=== PATIENT | male | born 1935 | race Caucasian/White ===

== ENCOUNTER 2017-09-24 13:23 | Day surgery (SDC) | payer MEDICARE, BC ==
[~2017-09-24 13:23] MED LIST: ASPI325 PO; ASPI81EC PO; B-122500 MCG PO; BETA.1TL TOP; CALCAVITDA PO; CEPH500 PO; CHOL10002; CLOBETTC TOP; CLOP75 PO; EZET10-40 PO; FAMO20 PO; FISH OIL 1,2001 EACH PO; FISH1000; GABA300 PO; GLIM2 PO; GLIP5 PO; GLUCHON PO; LISI20 PO; LOSA25 PO; METF500 PO; METO25ER PO; METO50ER PO; ONDA4ODT MM; OXYACE5T PO; OXYC5 PO; Prednisone20 MG PO; RXONDA4ODT MM; SIMV40 PO; SITA50T2 PO; VITAMIN B-125000 MCG PO
[2017-10-15] MEDS ORDERED: Carvedilol12.5 MG PO (14:02)
[2017-10-15] MEDS ORDERED: Aldactone25 MG PO (14:03)
== END 2017-09-24 15:06 | disposition home or self-care (01) ==
LOC: WOUND 13:23
DX: Z48.00 Encounter for change or removal of nonsurgical wound dressing (principal); I87.2 Venous insufficiency (chronic) (peripheral); L97.812 Non-pressure chronic ulcer of other part of right lower leg with fat layer exposed; L03.115 Cellulitis of right lower limb; I70.201 Unspecified atherosclerosis of native arteries of extremities, right leg; L02.511 Cutaneous abscess of right hand
CPT/HCPCS: G0463

== ENCOUNTER 2017-10-01 14:49 | Day surgery (SDC) | payer MEDICARE, BC ==
[2017-10-15] MEDS ORDERED: Carvedilol12.5 MG PO (14:02)
[2017-10-15] MEDS ORDERED: Aldactone25 MG PO (14:03)
== END 2017-10-01 16:56 | disposition home or self-care (01) ==
LOC: WOUND 14:49
PROC: 0J9J3ZZ Drainage of Right Hand Subcutaneous Tissue and Fascia, Percutaneous Approach (ICD-10-PCS; principal; 2017-10-01)
DX: Z48.00 Encounter for change or removal of nonsurgical wound dressing (principal); I87.2 Venous insufficiency (chronic) (peripheral); L97.812 Non-pressure chronic ulcer of other part of right lower leg with fat layer exposed; L03.115 Cellulitis of right lower limb; I70.201 Unspecified atherosclerosis of native arteries of extremities, right leg; L02.511 Cutaneous abscess of right hand
CPT/HCPCS: G0463

== ENCOUNTER 2017-10-08 00:45 | Day surgery (SDC) | payer MEDICARE, BC ==
[2017-10-15] MEDS ORDERED: Carvedilol12.5 MG PO (14:02)
[2017-10-15] MEDS ORDERED: Aldactone25 MG PO (14:03)
== END 2017-10-08 22:51 | disposition home or self-care (01) ==
LOC: WOUND 00:45
PROC: 0Y9K3ZZ Drainage of Right Ankle Region, Percutaneous Approach (ICD-10-PCS; principal; 2017-10-08)
DX: Z48.00 Encounter for change or removal of nonsurgical wound dressing (principal); I87.2 Venous insufficiency (chronic) (peripheral); L97.812 Non-pressure chronic ulcer of other part of right lower leg with fat layer exposed; L03.115 Cellulitis of right lower limb; I70.201 Unspecified atherosclerosis of native arteries of extremities, right leg; L02.511 Cutaneous abscess of right hand
CPT/HCPCS: G0463

== ENCOUNTER 2017-10-15 15:00 | Day surgery (SDC) | payer MEDICARE, BC ==
[~2017-10-15 15:00] MED LIST changes: +Aldactone25 MG PO; +Carvedilol12.5 MG PO
== END 2017-10-15 17:29 | disposition home or self-care (01) ==
LOC: WOUND 15:00
PROC: 0HBKXZZ Excision of Right Lower Leg Skin, External Approach (ICD-10-PCS; principal; 2017-10-15)
DX: Z48.00 Encounter for change or removal of nonsurgical wound dressing (principal); E11.621 Type 2 diabetes mellitus with foot ulcer; E11.69 Type 2 diabetes mellitus with other specified complication; I87.2 Venous insufficiency (chronic) (peripheral); L97.812 Non-pressure chronic ulcer of other part of right lower leg with fat layer exposed; L03.115 Cellulitis of right lower limb; I70.201 Unspecified atherosclerosis of native arteries of extremities, right leg; L02.511 Cutaneous abscess of right hand
CPT/HCPCS: G0463

== ENCOUNTER 2017-10-16 07:26 | Observation (INO) | payer MEDICARE, BC ==
[~2017-10-16] VITALS: Ht 190.5 cm; Wt 88.0 kg
[2017-10-17 04:31] LABS: Bun/Creatinine Ratio 15.3 (12.0-20.0); Calcium, Blood 8.1 mg/dL (8.5-10.1); Creatinine, Blood 1.31 mg/dL (0.60-1.20); Potassium, Blood 4.4 mmol/L (3.5-5.5)
== END 2017-10-17 10:00 | disposition home or self-care (01) ==
LOC: MHTC 07:26 → PCU 12:19 → MHTC 15:05 → PCU 15:05
PROVIDERS: Internal Medicine Interventional Cardiology
PROC: 047R3Z1 Dilation of Right Posterior Tibial Artery using Drug-Coated Balloon, Percutaneous Approach (ICD-10-PCS; principal; 2017-10-16)
DX: I70.201 Unspecified atherosclerosis of native arteries of extremities, right leg (principal); E11.622 Type 2 diabetes mellitus with other skin ulcer; L97.319 Non-pressure chronic ulcer of right ankle with unspecified severity; I25.10 Atherosclerotic heart disease of native coronary artery without angina pectoris; I65.29 Occlusion and stenosis of unspecified carotid artery; E11.22 Type 2 diabetes mellitus with diabetic chronic kidney disease; I13.0 Hypertensive heart and chronic kidney disease with heart failure and stage 1 through stage 4 chronic kidney disease, or unspecified chronic kidney disease; I50.9 Heart failure, unspecified; N18.9 Chronic kidney disease, unspecified; J44.9 Chronic obstructive pulmonary disease, unspecified; E78.5 Hyperlipidemia, unspecified; F43.21 Adjustment disorder with depressed mood; G47.33 Obstructive sleep apnea (adult) (pediatric); Z89.612 Acquired absence of left leg above knee; Z95.820 Peripheral vascular angioplasty status with implants and grafts; Z95.1 Presence of aortocoronary bypass graft; Z85.46 Personal history of malignant neoplasm of prostate; Z79.899 Other long term (current) drug therapy; Z79.01 Long term (current) use of anticoagulants; Z79.84 Long term (current) use of oral hypoglycemic drugs; Z87.891 Personal history of nicotine dependence
CPT/HCPCS: 36415; 37228; 75630; 75774; 80048; 85347; 96360; 96361; 99152; 99153; C1725; C1769; C1887; C1894; G0378; J1644; J2250; J2720; J3010; J7030; J7040; Q9967

== ENCOUNTER 2017-10-22 10:02 | Day surgery (SDC) | payer MEDICARE, BC | END 2017-10-22 23:00 | disposition home or self-care (01) | LOC: WOUND 10:02 | DX: Z48.00 Encounter for change or removal of nonsurgical wound dressing (principal); I87.2 Venous insufficiency (chronic) (peripheral); L97.812 Non-pressure chronic ulcer of other part of right lower leg with fat layer exposed; L03.115 Cellulitis of right lower limb; I70.201 Unspecified atherosclerosis of native arteries of extremities, right leg; L02.511 Cutaneous abscess of right hand | CPT/HCPCS: G0463 ==

== ENCOUNTER 2017-10-29 01:00 | Day surgery (SDC) | payer MEDICARE, BC | END 2017-10-29 13:09 | disposition home or self-care (01) | LOC: WOUND 01:00 | DX: Z48.00 Encounter for change or removal of nonsurgical wound dressing (principal); I87.2 Venous insufficiency (chronic) (peripheral); L97.812 Non-pressure chronic ulcer of other part of right lower leg with fat layer exposed; L03.115 Cellulitis of right lower limb; I70.201 Unspecified atherosclerosis of native arteries of extremities, right leg; L02.511 Cutaneous abscess of right hand | CPT/HCPCS: G0463 ==

== ENCOUNTER 2017-11-29 13:00 | Day surgery (SDC) | payer MEDICARE, BC | END 2017-12-04 22:56 | disposition home or self-care (01) | LOC: WOUND 13:00 | DX: Z48.00 Encounter for change or removal of nonsurgical wound dressing (principal); I87.2 Venous insufficiency (chronic) (peripheral); I70.201 Unspecified atherosclerosis of native arteries of extremities, right leg; L97.812 Non-pressure chronic ulcer of other part of right lower leg with fat layer exposed; L03.115 Cellulitis of right lower limb; L02.511 Cutaneous abscess of right hand; I67.2 Cerebral atherosclerosis; Z87.891 Personal history of nicotine dependence | CPT/HCPCS: 87070; 87077; 87147; 87186; 87205; G0463 ==

== ENCOUNTER 2017-12-06 14:14 | Inpatient (IN) | payer MEDICARE, BC ==
[~2017-12-06] VITALS: Ht 190.5 cm; Wt 89.1 kg
[~2017-12-06 14:14] MED LIST changes: -ACET325 PO; -AZIT250 PO; -Bactrim Ds Tab1 EACH PO; -Bisac-Evac10 MG PR; -CEFU250T47 PO; -CHOL10002 PO; -Colace100 MG PO; -INSU100I6; -Milk Of Ma400 MG/5 M PO; -SODBIC650 PO
[2017-12-06] MEDS ORDERED: Bactrim Ds Tab1 EACH PO (19:21)
[2017-12-06 19:31] LABS: Troponin I <0.015 ng/mL (0.000-0.040)
[2017-12-06 21:03] LABS: Alanine Aminotransfer (ALT/SGP 15 U/L (12-78); Albumin, Blood 3.4 g/dL (3.4-5.0); Albumin/Globulin Ratio 0.8 (0.8-1.8); Alk Phos 73 U/L (50-136); Anion Gap 13 mmol/L (6-16); Aspartate Aminotrans (AST/SGOT 30 U/L (12-37); Bilirubin, Direct <0.1 mg/dL (0.0-0.3); Bilirubin, Indirect Unable to Calculate mg/dL (0.1-0.7); Bilirubin, Total 0.4 mg/dL (0.1-1.0); Blood Urea Nitrogen 41 mg/dL (8-24); Bun/Creatinine Ratio 14.1 (12.0-20.0); CO2, Blood 16 mmol/L (21-32); Calcium, Blood 8.8 mg/dL (8.5-10.1); Chloride, Blood 107 mmol/L (98-108); Globulin, Blood 4.1 g/dL (2.2-4.0); Glomerular Filtration Rate 22 (60-); Glucose, Blood 96 mg/dL (70-99); Potassium, Blood 5.5 mmol/L (3.5-5.5); Sodium, Blood 136 mmol/L (136-145); Total Protein, Blood 7.5 g/dL (6.4-8.2)
[2017-12-06 23:06] LABS: Source, Urine Clean Catch
[2017-12-06 23:08] LABS: Bilirubin, Urine Neg (Neg); Blood, Urine Neg (Neg); Glucose Qualitative, Urine Neg (Neg); Ketones, Urine Neg (Neg); Leukocyte Esterase, Urine Neg (Neg); Nitrite, Urine Neg (Neg); Protein, Urine Neg (Neg); Specific Gravity, Urine 1.015 (1.003-1.022); Urobilinogen, Urine NORM (Normal)
[2017-12-06 23:09] LABS: Appearance, Urine Clear (Clear); Color, Urine Yellow (P-Yellow)
[2017-12-06] MEDS ORDERED: CHOL10002 PO (23:15)
[2017-12-06 23:38] LABS: Influenza A Negative (NEGATIVE); Influenza B Negative (NEGATIVE)
[2017-12-07 05:12] LABS: BASOPHILS ABSOLUTE AUTO 0.02 K/mm3 (0.00-0.23); BASOPHILS PERCENT AUTO 0 % (0-2); EOSINOPHILS ABSOLUTE AUTO 0.15 K/mm3 (0.00-0.68); EOSINOPHILS PERCENT AUTO 3 % (0-6); Hemoglobin 10.9 g/dL (13.5-17.5); Mean Corpuscular HGB 27.9 pg (26.0-34.0); Mean Corpuscular HGB Conc 32.1 g/dL (31.5-36.5); Mean Corpuscular Volume 87 fL (80-100); Mean Platelet Volume 9.9 fL (9.1-12.4); Platelet Count 172 K/mm3 (150-400); RDW Coefficient Variation 14.1 % (11.7-14.2); RDW Standard Deviation 45.1 fL (35.1-46.3); Red Blood Cell Count 3.91 M/mm3 (4.30-5.90); White Blood Cell Count 4.96 K/mm3 (4.00-11.30)
[2017-12-07 05:14] LABS: IMMATURE GRAN ABSOLUTE AUTO 0.02 K/mm3 (0.00-0.10); IMMATURE GRAN PERCENT AUTO 0 % (0-1); LYMPHOCYTES PERCENT AUTO 18 % (21-46); MONOCYTES PERCENT AUTO 12 % (4-13); NEUTROPHILS ABSOLUTE AUTO 3.27 K/mm3 (1.96-9.15); NEUTROPHILS PERCENT AUTO 66 % (41-73)
[2017-12-07 05:43] LABS: Albumin, Blood 3.1 g/dL (3.4-5.0); Albumin/Globulin Ratio 0.8 (0.8-1.8); Bilirubin, Total 0.3 mg/dL (0.1-1.0); Bun/Creatinine Ratio 15.6 (12.0-20.0); Calcium, Blood 8.8 mg/dL (8.5-10.1); Creatinine, Blood 3.02 mg/dL (0.60-1.20); Globulin, Blood 4.1 g/dL (2.2-4.0); Potassium, Blood 4.6 mmol/L (3.5-5.5); Total Protein, Blood 7.2 g/dL (6.4-8.2)
[2017-12-08 05:35] LABS: Hemoglobin 10.9 g/dL (13.5-17.5); Mean Corpuscular HGB 28.1 pg (26.0-34.0); Mean Corpuscular HGB Conc 32.1 g/dL (31.5-36.5); Mean Corpuscular Volume 88 fL (80-100); Mean Platelet Volume 10.2 fL (9.1-12.4); Platelet Count 151 K/mm3 (150-400); RDW Coefficient Variation 14.2 % (11.7-14.2); RDW Standard Deviation 45.5 fL (35.1-46.3); Red Blood Cell Count 3.88 M/mm3 (4.30-5.90); White Blood Cell Count 6.14 K/mm3 (4.00-11.30)
[2017-12-08 06:05] LABS: Albumin, Blood 2.9 g/dL (3.4-5.0); Anion Gap 13 mmol/L (6-16); Blood Urea Nitrogen 58 mg/dL (8-24); Bun/Creatinine Ratio 17.7 (12.0-20.0); CO2, Blood 17 mmol/L (21-32); CPK Creatine Kinase 356 U/L (39-308); Calcium, Blood 8.4 mg/dL (8.5-10.1); Chloride, Blood 106 mmol/L (98-108); Creatinine, Blood 3.28 mg/dL (0.60-1.20); Glomerular Filtration Rate 19 (60-); Glucose, Blood 103 mg/dL (70-99); Phosphorus, Blood 4.3 mg/dL (2.5-4.9); Potassium, Blood 4.6 mmol/L (3.5-5.5); Sodium, Blood 136 mmol/L (136-145); Uric Acid, Blood 7.8 mg/dL (3.5-7.2)
[2017-12-09 05:12] LABS: BASOPHILS ABSOLUTE AUTO 0.02 K/mm3 (0.00-0.23); BASOPHILS PERCENT AUTO 0 % (0-2); EOSINOPHILS ABSOLUTE AUTO 0.12 K/mm3 (0.00-0.68); EOSINOPHILS PERCENT AUTO 2 % (0-6); Hematocrit 32.6 % (37.0-53.0); Hemoglobin 10.8 g/dL (13.5-17.5); Mean Corpuscular HGB 28.3 pg (26.0-34.0); Mean Corpuscular HGB Conc 33.1 g/dL (31.5-36.5); Mean Platelet Volume 10.4 fL (9.1-12.4); Platelet Count 178 K/mm3 (150-400); RDW Coefficient Variation 13.9 % (11.7-14.2); RDW Standard Deviation 43.7 fL (35.1-46.3); Red Blood Cell Count 3.82 M/mm3 (4.30-5.90); White Blood Cell Count 6.01 K/mm3 (4.00-11.30)
[2017-12-09 05:22] LABS: IMMATURE GRAN ABSOLUTE AUTO 0.02 K/mm3 (0.00-0.10); IMMATURE GRAN PERCENT AUTO 0 % (0-1); LYMPHOCYTES ABSOLUTE AUTO 2.06 K/mm3 (0.84-5.20); LYMPHOCYTES PERCENT AUTO 34 % (21-46); MONOCYTES ABSOLUTE AUTO 0.65 K/mm3 (0.16-1.47); MONOCYTES PERCENT AUTO 11 % (4-13); Mean Corpuscular Volume 85 fL (80-100); NEUTROPHILS ABSOLUTE AUTO 3.14 K/mm3 (1.96-9.15); NEUTROPHILS PERCENT AUTO 52 % (41-73)
[2017-12-09 05:40] LABS: Albumin, Blood 2.8 g/dL (3.4-5.0); Anion Gap 10 mmol/L (6-16); Blood Urea Nitrogen 59 mg/dL (8-24); Bun/Creatinine Ratio 22.6 (12.0-20.0); CO2, Blood 19 mmol/L (21-32); Calcium, Blood 8.5 mg/dL (8.5-10.1); Chloride, Blood 109 mmol/L (98-108); Creatinine, Blood 2.61 mg/dL (0.60-1.20); Glomerular Filtration Rate 25 (60-); Glucose, Blood 118 mg/dL (70-99); Phosphorus, Blood 3.7 mg/dL (2.5-4.9); Potassium, Blood 4.7 mmol/L (3.5-5.5); Sodium, Blood 138 mmol/L (136-145)
[2017-12-10 08:48] LABS: Albumin, Blood 2.9 g/dL (3.4-5.0); Anion Gap 8 mmol/L (6-16); Blood Urea Nitrogen 48 mg/dL (8-24); CO2, Blood 20 mmol/L (21-32); Calcium, Blood 9.1 mg/dL (8.5-10.1); Chloride, Blood 111 mmol/L (98-108); Creatinine, Blood 2.18 mg/dL (0.60-1.20); Glomerular Filtration Rate 31 (60-); Glucose, Blood 145 mg/dL (70-99); Phosphorus, Blood 3.5 mg/dL (2.5-4.9); Potassium, Blood 4.8 mmol/L (3.5-5.5); Sodium, Blood 139 mmol/L (136-145)
[2017-12-10] MEDS ORDERED: ACET325 PO (14:04)
[2017-12-10] MEDS ORDERED: AZIT250 PO (14:05)
[2017-12-10] MEDS ORDERED: CEFU250T47 PO (14:06)
[2017-12-10] MEDS ORDERED: Bisac-Evac10 MG PR (14:06)
[2017-12-10] MEDS ORDERED: Milk Of Ma400 MG/5 M PO (14:07)
[2017-12-10] MEDS ORDERED: Colace100 MG PO (14:07)
[2017-12-10] MEDS ORDERED: SODBIC650 PO (14:08)
[2017-12-10] MEDS ORDERED: INSU100I6 (14:08)
== END 2017-12-10 14:12 | DRG 194 ==
LOC: ER 14:14 → MEDS 20:27
PROVIDERS: Internal Medicine; Physician Assistant
DX: J18.9 Pneumonia, unspecified organism (principal); N17.9 Acute kidney failure, unspecified; E11.22 Type 2 diabetes mellitus with diabetic chronic kidney disease; E11.40 Type 2 diabetes mellitus with diabetic neuropathy, unspecified; N18.4 Chronic kidney disease, stage 4 (severe); I13.0 Hypertensive heart and chronic kidney disease with heart failure and stage 1 through stage 4 chronic kidney disease, or unspecified chronic kidney disease; I50.20 Unspecified systolic (congestive) heart failure; L97.411 Non-pressure chronic ulcer of right heel and midfoot limited to breakdown of skin; E11.621 Type 2 diabetes mellitus with foot ulcer; E87.5 Hyperkalemia; F43.20 Adjustment disorder, unspecified; I73.9 Peripheral vascular disease, unspecified; J44.9 Chronic obstructive pulmonary disease, unspecified; L97.511 Non-pressure chronic ulcer of other part of right foot limited to breakdown of skin; I25.10 Atherosclerotic heart disease of native coronary artery without angina pectoris; Z66 Do not resuscitate; Z85.46 Personal history of malignant neoplasm of prostate; Z79.02 Long term (current) use of antithrombotics/antiplatelets; Z79.4 Long term (current) use of insulin; Z89.612 Acquired absence of left leg above knee
CPT/HCPCS: 36415; 71046; 76770; 78582; 80048; 80053; 80069; 80076; 81003; 82550; 82947; 83605; 83880; 84145; 84300; 84484; 84550; 85025; 85027; 87040; 87070; 87081; 87205; 87804; 93005; 93010; 94667; 94760; 96374; 96375; 97110; 97161; 97166; 97530; 97535; 99285; A9540; A9558; G8978; G8979; G8987; G8988; J0456; J0610; J0690; J0696; J1650; J1815; J1940; J7030; J7050

== ENCOUNTER → 2017-12-06 | Outpatient (CLI) | payer MEDICARE, BC ==
[~2017-12-06] MED LIST changes: +ACET325 PO; +AZIT250 PO; +Bactrim Ds Tab1 EACH PO; +Bisac-Evac10 MG PR; +CEFU250T47 PO; +CHOL10002 PO; +Colace100 MG PO; +INSU100I6; +Milk Of Ma400 MG/5 M PO; +SODBIC650 PO
[2017-12-06 12:28] LABS: BASOPHILS ABSOLUTE AUTO 0.03 K/mm3 (0.00-0.23); BASOPHILS PERCENT AUTO 1 % (0-2); Calcium, Blood 9.1 mg/dL (8.5-10.1); Creatinine, Blood 2.93 mg/dL (0.60-1.20); EOSINOPHILS ABSOLUTE AUTO 0.12 K/mm3 (0.00-0.68); EOSINOPHILS PERCENT AUTO 2 % (0-6); Hematocrit 35.5 % (37.0-53.0); Hemoglobin 11.8 g/dL (13.5-17.5); IMMATURE GRAN ABSOLUTE AUTO 0.04 K/mm3 (0.00-0.10); IMMATURE GRAN PERCENT AUTO 1 % (0-1); LYMPHOCYTES ABSOLUTE AUTO 0.57 K/mm3 (0.84-5.20); LYMPHOCYTES PERCENT AUTO 10 % (21-46); MONOCYTES ABSOLUTE AUTO 0.42 K/mm3 (0.16-1.47); MONOCYTES PERCENT AUTO 7 % (4-13); Mean Corpuscular HGB 28.9 pg (26.0-34.0); Mean Corpuscular HGB Conc 33.2 g/dL (31.5-36.5); Mean Corpuscular Volume 87 fL (80-100); Mean Platelet Volume 10.1 fL (9.1-12.4); NEUTROPHILS PERCENT AUTO 79 % (41-73); Platelet Count 182 K/mm3 (150-400); Potassium, Blood 5.8 mmol/L (3.5-5.5); RDW Coefficient Variation 14.2 % (11.7-14.2); Red Blood Cell Count 4.09 M/mm3 (4.30-5.90); White Blood Cell Count 5.68 K/mm3 (4.00-11.30)
== END | disposition home or self-care (01) ==
LOC: LAB EV 12:11 → LAB SHORT 12:11
PROVIDERS: Physician Assistant Surgical
DX: M62.81 Muscle weakness (generalized) (principal)
CPT/HCPCS: 80048; 83880; 85025

== ENCOUNTER 2017-12-18 12:18 | Day surgery (SDC) | payer MEDICARE, BC ==
[~2017-12-18 12:18] MED LIST changes: +ACET325 PO; +AZIT250 PO; +Bactrim Ds Tab1 EACH PO; +Bisac-Evac10 MG PR; +CEFU250T47 PO; +CHOL10002 PO; +Colace100 MG PO; +INSU100I6; +Milk Of Ma400 MG/5 M PO; +SODBIC650 PO
== END 2017-12-18 14:47 | disposition home or self-care (01) ==
LOC: WOUND 12:18
PROC: 0JBQ0ZZ Excision of Right Foot Subcutaneous Tissue and Fascia, Open Approach (ICD-10-PCS; principal; 2017-12-18)
DX: Z48.00 Encounter for change or removal of nonsurgical wound dressing (principal); I70.201 Unspecified atherosclerosis of native arteries of extremities, right leg; L97.812 Non-pressure chronic ulcer of other part of right lower leg with fat layer exposed; L97.511 Non-pressure chronic ulcer of other part of right foot limited to breakdown of skin; L97.311 Non-pressure chronic ulcer of right ankle limited to breakdown of skin; L03.115 Cellulitis of right lower limb; L02.511 Cutaneous abscess of right hand; E78.5 Hyperlipidemia, unspecified; Z87.891 Personal history of nicotine dependence; Z95.828 Presence of other vascular implants and grafts; Z90.79 Acquired absence of other genital organ(s); Z95.1 Presence of aortocoronary bypass graft; Z86.14 Personal history of Methicillin resistant Staphylococcus aureus infection
CPT/HCPCS: G0463

== ENCOUNTER 2017-12-25 12:21 | Day surgery (SDC) | payer MEDICARE, BC | END 2017-12-25 22:44 | disposition home or self-care (01) | LOC: WOUND 12:21 | DX: Z48.00 Encounter for change or removal of nonsurgical wound dressing (principal); I87.2 Venous insufficiency (chronic) (peripheral); E11.622 Type 2 diabetes mellitus with other skin ulcer; L97.812 Non-pressure chronic ulcer of other part of right lower leg with fat layer exposed; L03.115 Cellulitis of right lower limb; I70.201 Unspecified atherosclerosis of native arteries of extremities, right leg; L02.511 Cutaneous abscess of right hand | CPT/HCPCS: G0463 ==

== ENCOUNTER 2017-12-31 08:42 | Day surgery (SDC) | payer MEDICARE, BC | END 2017-12-31 09:43 | disposition home or self-care (01) | LOC: WOUND 08:42 | PROC: 0HBMXZZ Excision of Right Foot Skin, External Approach (ICD-10-PCS; principal; 2017-12-31) | DX: I87.2 Venous insufficiency (chronic) (peripheral) (principal); L97.511 Non-pressure chronic ulcer of other part of right foot limited to breakdown of skin; L97.812 Non-pressure chronic ulcer of other part of right lower leg with fat layer exposed; L03.115 Cellulitis of right lower limb; I70.201 Unspecified atherosclerosis of native arteries of extremities, right leg; L02.511 Cutaneous abscess of right hand | CPT/HCPCS: G0463 ==

== ENCOUNTER 2018-01-16 12:16 | Day surgery (SDC) | payer MEDICARE, BC | END 2018-01-16 15:46 | disposition home or self-care (01) | LOC: WOUND 12:16 | DX: E11.621 Type 2 diabetes mellitus with foot ulcer (principal); I87.2 Venous insufficiency (chronic) (peripheral); E11.622 Type 2 diabetes mellitus with other skin ulcer; L97.512 Non-pressure chronic ulcer of other part of right foot with fat layer exposed; L97.812 Non-pressure chronic ulcer of other part of right lower leg with fat layer exposed; L03.115 Cellulitis of right lower limb; I70.201 Unspecified atherosclerosis of native arteries of extremities, right leg; L02.511 Cutaneous abscess of right hand ==

== ENCOUNTER 2018-01-23 00:06 | Day surgery (SDC) | payer MEDICARE, BC | END 2018-01-23 23:05 | disposition home or self-care (01) | LOC: WOUND 00:06 | DX: Z48.00 Encounter for change or removal of nonsurgical wound dressing (principal); E11.622 Type 2 diabetes mellitus with other skin ulcer; E11.621 Type 2 diabetes mellitus with foot ulcer; I87.2 Venous insufficiency (chronic) (peripheral); L97.812 Non-pressure chronic ulcer of other part of right lower leg with fat layer exposed; L03.115 Cellulitis of right lower limb; I70.201 Unspecified atherosclerosis of native arteries of extremities, right leg; L02.511 Cutaneous abscess of right hand | CPT/HCPCS: G0463 ==

== ENCOUNTER 2018-01-30 09:15 | Day surgery (SDC) | payer MEDICARE, BC | END 2018-01-30 23:00 | disposition home or self-care (01) | LOC: WOUND 09:15 | PROC: 0HBMXZZ Excision of Right Foot Skin, External Approach (ICD-10-PCS; principal; 2018-01-30) | DX: E11.621 Type 2 diabetes mellitus with foot ulcer (principal); L97.512 Non-pressure chronic ulcer of other part of right foot with fat layer exposed; I87.2 Venous insufficiency (chronic) (peripheral); I70.201 Unspecified atherosclerosis of native arteries of extremities, right leg; E11.622 Type 2 diabetes mellitus with other skin ulcer; L03.115 Cellulitis of right lower limb; L02.511 Cutaneous abscess of right hand | CPT/HCPCS: 87081; G0463 ==

== ENCOUNTER 2018-02-06 09:15 | Day surgery (SDC) | payer MEDICARE, BC | END 2018-02-06 13:59 | disposition home or self-care (01) | LOC: WOUND 09:15 | DX: E11.621 Type 2 diabetes mellitus with foot ulcer (principal); L97.512 Non-pressure chronic ulcer of other part of right foot with fat layer exposed; I87.2 Venous insufficiency (chronic) (peripheral); L97.812 Non-pressure chronic ulcer of other part of right lower leg with fat layer exposed; L03.115 Cellulitis of right lower limb; I70.201 Unspecified atherosclerosis of native arteries of extremities, right leg; L02.511 Cutaneous abscess of right hand | CPT/HCPCS: 87081; G0463 ==

== ENCOUNTER 2018-02-13 09:15 | Day surgery (SDC) | payer MEDICARE, BC | END 2018-02-13 10:21 | disposition home or self-care (01) | LOC: WOUND 09:15 | DX: Z48.00 Encounter for change or removal of nonsurgical wound dressing (principal); I87.2 Venous insufficiency (chronic) (peripheral); L97.812 Non-pressure chronic ulcer of other part of right lower leg with fat layer exposed; L03.115 Cellulitis of right lower limb; I70.201 Unspecified atherosclerosis of native arteries of extremities, right leg; L02.511 Cutaneous abscess of right hand | CPT/HCPCS: G0463 ==

== ENCOUNTER 2018-02-20 09:22 | Day surgery (SDC) | payer MEDICARE, BC | END 2018-02-20 10:13 | disposition home or self-care (01) | LOC: WOUND 09:22 | DX: E11.621 Type 2 diabetes mellitus with foot ulcer (principal); L97.512 Non-pressure chronic ulcer of other part of right foot with fat layer exposed; I87.2 Venous insufficiency (chronic) (peripheral); L97.812 Non-pressure chronic ulcer of other part of right lower leg with fat layer exposed; L03.115 Cellulitis of right lower limb; L02.511 Cutaneous abscess of right hand | CPT/HCPCS: G0463 ==

== ENCOUNTER 2018-03-06 09:15 | Day surgery (SDC) | payer MEDICARE, BC | END 2018-03-06 10:37 | disposition home or self-care (01) | LOC: WOUND 09:15 | DX: Z48.00 Encounter for change or removal of nonsurgical wound dressing (principal); E11.622 Type 2 diabetes mellitus with other skin ulcer; I87.2 Venous insufficiency (chronic) (peripheral); L97.812 Non-pressure chronic ulcer of other part of right lower leg with fat layer exposed; L03.115 Cellulitis of right lower limb; L02.511 Cutaneous abscess of right hand | CPT/HCPCS: G0463 ==

== ENCOUNTER 2018-03-28 11:15 | Day surgery (SDC) | payer MEDICARE, BC | END 2018-03-28 12:28 | disposition home or self-care (01) | LOC: WOUND 11:15 | DX: Z48.00 Encounter for change or removal of nonsurgical wound dressing (principal); I87.2 Venous insufficiency (chronic) (peripheral); L97.812 Non-pressure chronic ulcer of other part of right lower leg with fat layer exposed; L03.115 Cellulitis of right lower limb; I70.201 Unspecified atherosclerosis of native arteries of extremities, right leg; L02.511 Cutaneous abscess of right hand | CPT/HCPCS: G0463 ==

== ENCOUNTER 2018-04-04 13:30 | Day surgery (SDC) | payer MEDICARE, BC | END 2018-04-04 15:15 | disposition home or self-care (01) | LOC: WOUND 13:30 | DX: E11.622 Type 2 diabetes mellitus with other skin ulcer (principal); I70.238 Atherosclerosis of native arteries of right leg with ulceration of other part of lower leg; L97.312 Non-pressure chronic ulcer of right ankle with fat layer exposed; I87.2 Venous insufficiency (chronic) (peripheral); L03.115 Cellulitis of right lower limb; L02.511 Cutaneous abscess of right hand; Z86.14 Personal history of Methicillin resistant Staphylococcus aureus infection | CPT/HCPCS: G0463 ==

== ENCOUNTER 2018-04-09 00:13 | Day surgery (SDC) | payer MEDICARE, BC | END 2018-04-09 12:54 | disposition home or self-care (01) | LOC: WOUND 00:13 | DX: Z48.00 Encounter for change or removal of nonsurgical wound dressing (principal); I87.2 Venous insufficiency (chronic) (peripheral); L97.812 Non-pressure chronic ulcer of other part of right lower leg with fat layer exposed; L03.115 Cellulitis of right lower limb; I70.201 Unspecified atherosclerosis of native arteries of extremities, right leg; L02.511 Cutaneous abscess of right hand | CPT/HCPCS: G0463 ==

== ENCOUNTER 2018-04-28 21:58 | Inpatient (IN) | payer MEDICARE, BC ==
[~2018-04-28] VITALS: Ht 193 cm; Wt 94.1 kg
[2018-04-28] MEDS ORDERED: Sulfamethoxazo1 EAC4 PO (22:18)
[2018-04-28 22:30] LABS: BASOPHILS ABSOLUTE AUTO 0.03 K/mm3 (0.00-0.23); BASOPHILS PERCENT AUTO 0 % (0-2); EOSINOPHILS ABSOLUTE AUTO 0.06 K/mm3 (0.00-0.68); EOSINOPHILS PERCENT AUTO 1 % (0-6); Hematocrit 31.7 % (37.0-53.0); Hemoglobin 10.2 g/dL (13.5-17.5); IMMATURE GRAN ABSOLUTE AUTO 0.03 K/mm3 (0.00-0.10); IMMATURE GRAN PERCENT AUTO 0 % (0-1); LYMPHOCYTES ABSOLUTE AUTO 0.46 K/mm3 (0.84-5.20); LYMPHOCYTES PERCENT AUTO 7 % (21-46); MONOCYTES ABSOLUTE AUTO 0.48 K/mm3 (0.16-1.47); MONOCYTES PERCENT AUTO 7 % (4-13); Mean Corpuscular HGB 29.1 pg (26.0-34.0); Mean Corpuscular HGB Conc 32.2 g/dL (31.5-36.5); Mean Corpuscular Volume 91 fL (80-100); Mean Platelet Volume 9.6 fL (9.1-12.4); NEUTROPHILS ABSOLUTE AUTO 5.82 K/mm3 (1.96-9.15); NEUTROPHILS PERCENT AUTO 85 % (41-73); Platelet Count 153 K/mm3 (150-400); RDW Coefficient Variation 13.8 % (11.7-14.2); RDW Standard Deviation 45.2 fL (35.1-46.3); White Blood Cell Count 6.88 K/mm3 (4.00-11.30)
[2018-04-28 22:48] LABS: Albumin/Globulin Ratio 0.9 (0.8-1.8); Bilirubin, Total 0.4 mg/dL (0.1-1.0); Calcium, Blood 7.9 mg/dL (8.5-10.1); Creatinine, Blood 2.29 mg/dL (0.60-1.20); Globulin, Blood 3.5 g/dL (2.2-4.0); Potassium, Blood 4.3 mmol/L (3.5-5.5); Total Protein, Blood 6.5 g/dL (6.4-8.2)
[2018-04-29 05:13] LABS: Bun/Creatinine Ratio 17.1 (12.0-20.0); Calcium, Blood 8.3 mg/dL (8.5-10.1); Creatinine, Blood 2.22 mg/dL (0.60-1.20); Potassium, Blood 4.6 mmol/L (3.5-5.5)
[2018-04-29 05:51] LABS: Source, Urine Clean Catch
[2018-04-29 05:54] LABS: Bilirubin, Urine Neg (Neg); Blood, Urine Neg (Neg); Glucose Qualitative, Urine 1+ (Neg); Ketones, Urine Neg (Neg); Leukocyte Esterase, Urine Neg (Neg); Nitrite, Urine Neg (Neg); Protein, Urine Neg (Neg); Specific Gravity, Urine 1.015 (1.003-1.022); Urobilinogen, Urine NORM (Normal)
[2018-04-29 06:00] LABS: Appearance, Urine Clear (Clear); Color, Urine Yellow (P-Yellow)
[2018-04-30 05:41] LABS: Hematocrit 30.9 % (37.0-53.0); Hemoglobin 9.9 g/dL (13.5-17.5)
[2018-04-30 05:48] LABS: Albumin, Blood 2.8 g/dL (3.4-5.0); Anion Gap 12 mmol/L (6-16); Blood Urea Nitrogen 34 mg/dL (8-24); Bun/Creatinine Ratio 16.7 (12.0-20.0); CO2, Blood 18 mmol/L (21-32); Calcium, Blood 7.9 mg/dL (8.5-10.1); Chloride, Blood 111 mmol/L (98-108); Creatinine, Blood 2.03 mg/dL (0.60-1.20); Glomerular Filtration Rate 34 (60-); Glucose, Blood 116 mg/dL (70-99); Magnesium, Blood 1.9 mg/dL (1.6-2.4); Potassium, Blood 4.2 mmol/L (3.5-5.5); Sodium, Blood 141 mmol/L (136-145)
[2018-05-01 08:24] LABS: Albumin, Blood 2.6 g/dL (3.4-5.0); Anion Gap 10 mmol/L (6-16); Blood Urea Nitrogen 33 mg/dL (8-24); Bun/Creatinine Ratio 18.1 (12.0-20.0); CO2, Blood 21 mmol/L (21-32); Calcium, Blood 8.3 mg/dL (8.5-10.1); Chloride, Blood 110 mmol/L (98-108); Creatinine, Blood 1.82 mg/dL (0.60-1.20); Glomerular Filtration Rate 38 (60-); Glucose, Blood 156 mg/dL (70-99); Phosphorus, Blood 3.2 mg/dL (2.5-4.9); Potassium, Blood 4.3 mmol/L (3.5-5.5); Sodium, Blood 141 mmol/L (136-145)
[2018-05-01] MEDS ORDERED: AZIT250 PO (12:23)
[2018-05-01] MEDS ORDERED: ALBU90OI INH (12:23)
[2018-05-01] MEDS ORDERED: CEFP200 PO (12:24)
== END 2018-05-01 14:20 | disposition home or self-care (01) | DRG 194 ==
LOC: ER 21:58 → MEDS 21:59 → ENPENDDIS 05-01 11:53 → MEDS 05-01 14:20
PROVIDERS: Emergency Medicine; Internal Medicine; Internal Medicine Nephrology
DX: J18.9 Pneumonia, unspecified organism (principal); N17.9 Acute kidney failure, unspecified; L03.115 Cellulitis of right lower limb; I13.0 Hypertensive heart and chronic kidney disease with heart failure and stage 1 through stage 4 chronic kidney disease, or unspecified chronic kidney disease; I50.32 Chronic diastolic (congestive) heart failure; E87.2 Acidosis; J44.0 Chronic obstructive pulmonary disease with (acute) lower respiratory infection; Z95.5 Presence of coronary angioplasty implant and graft; E78.00 Pure hypercholesterolemia, unspecified; Z87.891 Personal history of nicotine dependence; F41.8 Other specified anxiety disorders; M19.90 Unspecified osteoarthritis, unspecified site; Z85.46 Personal history of malignant neoplasm of prostate; G44.229 Chronic tension-type headache, not intractable; Z95.0 Presence of cardiac pacemaker; I25.10 Atherosclerotic heart disease of native coronary artery without angina pectoris; N18.3 Chronic kidney disease, stage 3 (moderate); E11.22 Type 2 diabetes mellitus with diabetic chronic kidney disease; Z90.79 Acquired absence of other genital organ(s); D63.1 Anemia in chronic kidney disease; Z89.612 Acquired absence of left leg above knee; Z79.02 Long term (current) use of antithrombotics/antiplatelets; Z99.3 Dependence on wheelchair; Z79.84 Long term (current) use of oral hypoglycemic drugs
CPT/HCPCS: 36415; 36416; 71046; 76770; 80048; 80053; 80069; 81003; 82947; 83605; 83735; 85014; 85018; 85025; 87040; 87070; 87205; 93005; 93010; 94760; 96365; 96375; 97162; 97165; 97530; 99285-25; G8978; G8979; G8987; G8988; J0456; J0696; J1644; J7030; J7050

== ENCOUNTER 2018-05-07 00:42 | Day surgery (SDC) | payer MEDICARE, BC ==
[~2018-05-07 00:42] MED LIST changes: +ALBU90OI INH; +CEFP200 PO; +Sulfamethoxazo1 EAC4 PO
[2018-05-07] MEDS ORDERED: GLIM4 PO (14:12)
== END 2018-05-07 14:19 | disposition home or self-care (01) ==
LOC: ATC 00:42
DX: Z48.00 Encounter for change or removal of nonsurgical wound dressing (principal); E11.9 Type 2 diabetes mellitus without complications
CPT/HCPCS: 99213

== ENCOUNTER 2018-05-12 00:21 | Day surgery (SDC) | payer MEDICARE, BC ==
[~2018-05-12 00:21] MED LIST changes: +GLIM4 PO
== END 2018-05-12 10:23 | disposition home or self-care (01) ==
LOC: ATC 00:21
DX: Z48.00 Encounter for change or removal of nonsurgical wound dressing (principal); E11.9 Type 2 diabetes mellitus without complications
CPT/HCPCS: 99212

== ENCOUNTER 2018-05-20 00:17 | Day surgery (SDC) | payer MEDICARE, BC | END 2018-05-20 10:03 | disposition home or self-care (01) | LOC: ATC 00:17 | DX: Z48.00 Encounter for change or removal of nonsurgical wound dressing (principal); E11.9 Type 2 diabetes mellitus without complications; E78.5 Hyperlipidemia, unspecified; G47.33 Obstructive sleep apnea (adult) (pediatric) | CPT/HCPCS: 99212 ==

== ENCOUNTER → 2019-04-10 | Outpatient (CLI) | payer MEDICARE, BC ==
[~2019-04-10] MED LIST changes: +ALBU3IS INH; +AMOCLA875 PO; -CHOL10002 PO; +CODEINE-GUAIFE120 ML PO; +MIRT15 PO; +PANT20 PO; +Pedi-Dri 100,0060 GM TOP; -SIMV40 PO; +Simvastatin40 MG PO; +TRAM50 PO; +TRULICITY0.75 MG/0. SC; +VITAMIN D32000 UNI1 PO; +Vsl#3 Capsule1 EACH PO
== END | disposition home or self-care (01) ==
LOC: LAB EV 16:50 → LAB SHORT 16:50
DX: R30.0 Dysuria (principal)
CPT/HCPCS: 87086

== ENCOUNTER 2019-05-07 15:08 | Inpatient (IN) | payer OTHER, MEDICARE, BC ==
[~2019-05-07] VITALS: Ht 193 cm; Wt 86.9 kg
[~2019-05-07 15:08] MED LIST changes: -ALBU3IS INH; -ALBU90OI INH; -AMOCLA875 PO; -Aldactone25 MG PO; -CODEINE-GUAIFE120 ML PO; -Carvedilol12.5 MG PO; -FISH OIL 1,2001 EACH PO; -GABA300 PO; -GLIM4 PO; -LOSA25 PO; -MIRT15 PO; -PANT20 PO; -Pedi-Dri 100,0060 GM TOP; -Simvastatin40 MG PO; -TRAM50 PO; -TRULICITY0.75 MG/0. SC; -VITAMIN B-125000 MCG PO; -VITAMIN D32000 UNI1 PO; -Vsl#3 Capsule1 EACH PO
[2019-05-07 15:32] LABS: BASOPHILS ABSOLUTE AUTO 0.04 K/mm3 (0.00-0.23); BASOPHILS PERCENT AUTO 1 % (0-2); EOSINOPHILS PERCENT AUTO 2 % (0-6); Hemoglobin 10.9 g/dL (13.5-17.5); IMMATURE GRAN ABSOLUTE AUTO 0.06 K/mm3 (0.00-0.10); IMMATURE GRAN PERCENT AUTO 1 % (0-1); LYMPHOCYTES ABSOLUTE AUTO 0.48 K/mm3 (0.84-5.20); LYMPHOCYTES PERCENT AUTO 6 % (21-46); MONOCYTES ABSOLUTE AUTO 0.75 K/mm3 (0.16-1.47); MONOCYTES PERCENT AUTO 9 % (4-13); Mean Corpuscular HGB 28.2 pg (26.0-34.0); Mean Corpuscular HGB Conc 31.1 g/dL (31.5-36.5); Mean Platelet Volume 10.3 fL (9.1-12.4); NEUTROPHILS ABSOLUTE AUTO 7.18 K/mm3 (1.96-9.15); NEUTROPHILS PERCENT AUTO 82 % (41-73); Platelet Count 197 K/mm3 (150-400); RDW Coefficient Variation 14.8 % (11.7-14.2); RDW Standard Deviation 49.4 fL (35.1-46.3); Red Blood Cell Count 3.87 M/mm3 (4.30-5.90); White Blood Cell Count 8.71 K/mm3 (4.00-11.30)
[2019-05-07 15:35] LABS: Mean Corpuscular Volume 90 fL (80-100)
[2019-05-07 16:12] LABS: Albumin, Blood 2.6 g/dL (3.4-5.0); Albumin/Globulin Ratio 0.6 (0.8-1.8); Bilirubin, Total 0.6 mg/dL (0.1-1.0); Bun/Creatinine Ratio 24.9 (12.0-20.0); Calcium, Blood 7.6 mg/dL (8.5-10.1); Creatinine, Blood 2.85 mg/dL (0.60-1.20); Globulin, Blood 4.3 g/dL (2.2-4.0); Potassium, Blood 5.2 mmol/L (3.5-5.5); Total Protein, Blood 6.9 g/dL (6.4-8.2)
[2019-05-07] MEDS ORDERED: CLOP75 PO (17:59)
[2019-05-07] MEDS ORDERED: GABA300 PO (18:00)
[2019-05-07] MEDS ORDERED: LOSA25 PO (18:01)
[2019-05-07] MEDS ORDERED: FISH OIL 1,2001 EACH PO (18:01)
[2019-05-07] MEDS ORDERED: Simvastatin40 MG PO (18:01)
[2019-05-07] MEDS ORDERED: Carvedilol12.5 MG PO (18:02)
[2019-05-07] MEDS ORDERED: VITAMIN B-125000 MCG PO (18:02)
[2019-05-07] MEDS ORDERED: Aldactone25 MG PO (18:03)
[2019-05-07] MEDS ORDERED: VITAMIN D32000 UNI1 PO (18:03)
[2019-05-07] MEDS ORDERED: GLIM4 PO (18:04)
[2019-05-07] MEDS ORDERED: ALBU90OI INH (18:04)
[2019-05-07] MEDS ORDERED: TRULICITY0.75 MG/0. SC (18:07)
[2019-05-07] MEDS ORDERED: Pedi-Dri 100,0060 GM TOP (18:39)
--- NOTE | 2019-05-07 18:54 | NUR ---
[facility] Compalains of great fatigue and aching, pt recieving pallitive treatment from doctor Good. Pt anorexic, denies headache or mouth soreness or difficulty swallowing. pt right eye swollen and gritty and draining and painfull. pt has sores on nose and lips and rash on arms. Complains of red excoriated groin. denies back or joint pain, nausea or difficulty breathing. very painfull to void and rarely voiding. states he sleeping all the time. He has barely ate in three days. Pt wants DNR status. Pt will be admitted for hydration and treatment. Will see pt for supportive symptom mangement. Reviewed strategies of PO intake will try ice chips and broth very slowly. Will await plan from doctor Good and patient. Will see if patient has POA and advance directive since he wants his [facility] to manage his care.
[2019-05-07 19:04] LABS: Source, Urine Clean Catch
[2019-05-07 19:06] LABS: Bilirubin, Urine Neg (Neg); Blood, Urine 1+ (Neg); Glucose Qualitative, Urine Neg (Neg); Ketones, Urine 2+ (Neg); Leukocyte Esterase, Urine 3+ (Neg); Nitrite, Urine Neg (Neg); Protein, Urine 2+ (Neg); Urobilinogen, Urine NORM (Normal)
[2019-05-07 19:12] LABS: Appearance, Urine Clear (Clear); Color, Urine Yellow (P-Yellow)
[2019-05-07 19:27] LABS: Squamous Epithelial Cells Mod /hpf (Few); Transitional Epithelial Cells Few /hpf (0-Rare)
[2019-05-07 19:29] LABS: Bacteria Mod /hpf; Red Blood Cells, Urine 0-2 /hpf (0-2)
[2019-05-08 05:03] LABS: Bun/Creatinine Ratio 26.8 (12.0-20.0); Calcium, Blood 6.7 mg/dL (8.5-10.1); Creatinine, Blood 2.13 mg/dL (0.60-1.20); Potassium, Blood 5.2 mmol/L (3.5-5.5)
--- NOTE | 2019-05-08 05:48 | NUR ---
COMMISSARY PRODUCTION SUPERVISOR SUMMARY NEW ADMIT FROM THE ED [facility]. PT AAOX4. USES WHEELCHAIR AT BASELINE BUT HAS BEEN VERY WEAK THE LAST FEW WEEKS AFTER STARTING A NEW CHEMO MED. PT STATES HE STOPPED USING THE MED AFTER TALKING WITH ONCOLOGIST. PT HAS A RED RASH ON GROIN THAT EXTENDS DOWN HIS THIGHS. PT STATES IT STARTED SOON AFTER HE BEGAN THE NEW CHEMO MEDS. GAVE IMODIUM FOR DIARRHEA AND MORPHINE FOR SOME STOMACH CRAMPING. VSS, WILL CONTINUE TO MONITOR.
[2019-05-08 14:48] LABS: Adenovirus F 40/41 Not Detected (NOT DETECT); Astrovirus Not Detected (NOT DETECT); Campylobacter Sp Not Detected (NOT DETECT); Cryptosporidium Not Detected (NOT DETECT); Cyclospora Cayetanensis Not Detected (NOT DETECT); E. Coli O157 Not Detected (NOT DETECT); Entamoeba Histolytica Not Detected (NOT DETECT); Enteroaggregative E. coli-EAEC Not Detected (NOT DETECT); Enteropathogenic E. coli-EPEC Not Detected (NOT DETECT); Enterotoxigenic E. coli-ETEC Not Detected (NOT DETECT); Giardia Lamblia Not Detected (NOT DETECT); Norovirus GI/GII Not Detected (NOT DETECT); Plesiomonas Shigelloides Not Detected (NOT DETECT); Rotavirus A Not Detected (NOT DETECT); Salmonella Sp Not Detected (NOT DETECT); Sapovirus Not Detected (NOT DETECT); Shiga Toxin-prod E. coli-STEC Not Detected (NOT DETECT); Shigella/Enteroin E. coli-EIEC Not Detected (NOT DETECT); Vibrio Cholerae Not Detected (NOT DETECT); Vibrio Sp Not Detected (NOT DETECT); Yersinia Enterocolitica Not Detected (NOT DETECT)
--- NOTE | 2019-05-08 16:41 | NUR ---
SHIFT SUMMARY: PT A/O X 4 THIS SHIFT AND DENIES PAIN BUT DOES C/O ONGOING NAUSEA. REDNESS CONTINUES TO RIGHT EYE AND GROIN AND BOTH CREAMS WERE APPLIED ORDERED. PT DECLINED HIS SHOWER/BED BATH TODAY BUT DID ACCEPT A WARM WASH CLOTH FOR HIS FACE AND HIS DENTURES WERE CLEANED. PT HAS DECLINED HIS MEALS IN FEAR OF HAVING MORE LOOSE STOOLS BUT WAS ACCEPTING OF BOOST DRINKS. PT GRANDDAUGHTER CALLED FOR AN UPDATE TODAY AND IS CONCERNED ABOUT HIS INCREASED WEAKNESS ALONG WITH HIM LIVING ALONE, DR PENNINGTON WAS NOTIFIED AND GAVE ORDERS FOR PT/OT EVALS ALONG WITH ANOTHER BAG OF IV FLUIDS R/T LACK OF APPETITE. GRANDDAUGHTER WAS UPDATED ON INTERVENTIONS AND AGREEABLE TO TX PLAN. PT HAS BEEN RESTING IN BED ALL DAY AND USES THE URINAL AT BEDSIDE AND CALLS FOR HELP APPROPRIATELY.
--- NOTE | 2019-05-09 04:44 | NUR ---
THEATER EDUCATION TEACHER SUMMARY NO ACUTE CHANGES THIS SHIFT. PT AAOX4, CALLS APPROPRIATELY FOR ASSISTANCE. PT HAS A VERY NEGATIVE ATTITUDE. REFUSES TO EAT DUE TO FEAR OF DIARRHEA AND SOME NAUSEA. PT DOES NOT SEEM VERY INTERESTED IN PUTTING IN ANY EFFORT TO GET BETTER. PT COMPLAINED OF PAIN TO R LEG AT START OF SHIFT. GAVE TYLENOL WHICH PT SAID RELIEVED THE PAIN COMPLETELY. PT HAS NOT HAD ANY DIARRHEA TONIGHT. HAS BEEN USING THE URINAL IN BED T/O THE NIGHT. VSS, WILL CONTINUE TO MONITOR.
[2019-05-09 04:48] LABS: Bun/Creatinine Ratio 27.7 (12.0-20.0); Calcium, Blood 7.1 mg/dL (8.5-10.1); Creatinine, Blood 1.66 mg/dL (0.60-1.20); Potassium, Blood 4.6 mmol/L (3.5-5.5)
--- NOTE | 2019-05-09 13:16 | NUR ---
Called to meet with patient about possible plan of care and decisions up to and including hospice care. Pt up in chair staff got him back to bed he is having increased pain and started with tylenol. pt fatigued and distraught today so did not initiate conversation he would like to talk about a plan. Spoke with his grandaukorinater she had questions about hospice. Reviewed how it works and what they offer. Suggested they speak with doctor eli mccord saturday and see what he can offer and formulate a plan. Alysia lives on his own and so they need to move him or get caregiver help. Joseph is for hospice if it gets back some of his quality of life. Updated Dr. Tafoya on his needs and increased pain. Review of neurontin dosing. and possible plan of care.
--- NOTE | 2019-05-09 16:52 | NUR ---
SHIFT SUMMARY: PT HAS BEEN A/O X 4 AT BASELINE TODAY AND MUCH MORE PLEASANT THAN YESTERDAY. HE DID C/O PAIN X 1 TO HIS BACK AND TYLENOL WAS GIVEN AND EFFECTICE AND HE WAS ABLE TO TAKE A NAP. PT DID AGREE TO WORK WITH PT THIS MORNING AND PIVOT TRANSFERRED FROM BED TO W/C WITH X 2 ASSIST AND WAS ASSISTED TO TAKE A SHOWER. GRANDDAUGHTER, JOSE CAME TO VISIT AND MET WITH DR PENNINGTON AND SHE EXPRESSED HER CONCERNS FOR A SAFE DC SINCE THE PT LIVES ALONE AND WILL NEED EXTRA HELP WITH HIS INCREASED WEAKNESS. DR PENNINGTON AGREED THAT PT NEEDED MORE TIME TO REGAIN STRENGTH AND CONTINUE TO WORK WITH THERAPIES AND PT WAS AGREEABLE TO THIS PLAN. PT ALSO STATED DURING THIS VISIT THAT HIS CURRENT ROOM WAS THE SAME ROOM THAT HIS IN AND THE FAMILY/MD THOUGHT HTIS MAY BE CONTRIBUTING TO HIS SAD MOOD. CHARGE NURSE WAS NOTIFIED AND AGREED THAT IT WAS APPROPRIATE TO OFFER PT A DIFFERENT ROOM, PT WAS THANKFUL FOR THIS AND HE WAS MOVED ACROSS THE [facility]. AFTER BEING UP IN HIS W/C FOR LUNCH PT WAS ASSISTED X 2 BACK TO BED AND HAS BEEN RESTING THIS AFTERNOON.
[2019-05-10 04:50] LABS: BASOPHILS ABSOLUTE AUTO 0.04 K/mm3 (0.00-0.23); BASOPHILS PERCENT AUTO 1 % (0-2); EOSINOPHILS ABSOLUTE AUTO 0.13 K/mm3 (0.00-0.68); EOSINOPHILS PERCENT AUTO 2 % (0-6); Hematocrit 32.5 % (37.0-53.0); Hemoglobin 10.5 g/dL (13.5-17.5); IMMATURE GRAN ABSOLUTE AUTO 0.07 K/mm3 (0.00-0.10); IMMATURE GRAN PERCENT AUTO 1 % (0-1); LYMPHOCYTES ABSOLUTE AUTO 0.53 K/mm3 (0.84-5.20); LYMPHOCYTES PERCENT AUTO 7 % (21-46); MONOCYTES ABSOLUTE AUTO 0.54 K/mm3 (0.16-1.47); MONOCYTES PERCENT AUTO 7 % (4-13); Mean Corpuscular HGB 28.9 pg (26.0-34.0); Mean Corpuscular HGB Conc 32.3 g/dL (31.5-36.5); Mean Corpuscular Volume 90 fL (80-100); Mean Platelet Volume 10.2 fL (9.1-12.4); NEUTROPHILS ABSOLUTE AUTO 6.06 K/mm3 (1.96-9.15); NEUTROPHILS PERCENT AUTO 82 % (41-73); Platelet Count 204 K/mm3 (150-400); RDW Coefficient Variation 15.1 % (11.7-14.2); RDW Standard Deviation 49.5 fL (35.1-46.3); Red Blood Cell Count 3.63 M/mm3 (4.30-5.90); White Blood Cell Count 7.37 K/mm3 (4.00-11.30)
[2019-05-10 05:09] LABS: Bun/Creatinine Ratio 24.7 (12.0-20.0); Calcium, Blood 7.4 mg/dL (8.5-10.1); Creatinine, Blood 1.5 mg/dL (0.60-1.20); Potassium, Blood 4.6 mmol/L (3.5-5.5)
--- NOTE | 2019-05-10 05:47 | NUR ---
SHIFT SUMMARY PT HAS BEEN A&O THIS SHIFT, RANDAL VASQUEZ. USES URINAL IN BED. HAS HAD NO BM THIS SHIFT. MEDICATED X1 FOR ABDOMINAL PAIN. PT HAS LOW GRADE TEMP THIS AM OF 100 AND ALSO LOW O2 SATS, 86-88% ON RA. ENCOURAGED PT TO DEEP BREATHE AND SATS INCREASE TO 92%. INSTRUCTED PT TO DO SOME DEEP BREATHING EXERCISES W/A. PT REFUSES OFFER OF OXYGEN. WILL CONTINUE TO MONITOR.
--- NOTE | 2019-05-10 17:50 | NUR ---
SHIFT SUMMARY: PT HAS BEEN A/O X 4 AT BASELINE TODAY WITH C/O PAIN TO ABDOMEN AND BACK FOR WHICH MEDS WERE GIVEN ORDERED AND PT WAS ABLE TO REST. PT DECLINED THERAPIES TODAY STATING HE FELT MUCH WORSE TODAY THAN YESTERDAY. COMPLAINTS WERE REPORTED TO DR PENNINGTON WHO ORDERS MEDS REFLECTED ON NOV WELL A CXR REVEALING PNA AND IV ABO WERE STARTED AND TOLERATED WELL. FAMILY HAS VISITED ON AND OFF THROUGHOUT THE DAY AND CONTINUE TO BE PT ADVOCATES AND VERY INVOLVED IN PLAN OF CARE ALONG WITH PT. PT HAS HAD DECREASED APPETITE AND FLUIDS WERE ENCOURAGED BUT PT STATES IT MAKES HIM FEEL WORSE TO TAKE IN DRINKS OR FOOD. PT IS CURRENTLY SLEEPING AND IS ABLE TO MAKE HIS NEEDS KNOWN.
[2019-05-11 05:01] LABS: Calcium, Blood 7.2 mg/dL (8.5-10.1); Creatinine, Blood 1.35 mg/dL (0.60-1.20); Potassium, Blood 4.7 mmol/L (3.5-5.5)
--- NOTE | 2019-05-11 05:50 | NUR ---
Pt had good night. Sleeping most of shift. Ultram given at hs for pain with good relief. Pt states he is starting to feel better. He states that he still does not feel like food. Pt states he does not want anymore chemo.
--- NOTE | 2019-05-11 14:56 | NUR ---
PAL CARE FOLLOW UP VISIT MADE TO PT, WELL KNOWN TO ME. HERB REPORTS HE IS FEELING MUCH BETTER THAN HE WAS ON ADMISSION ON SATURDAY, "BUT NOW THEY SAY I HAVE PNEUMONIA". DISCUSSED HIS IMMUNE SUPPRESSION ALONG WITH UNDERLYING COPD MAY MAKE HIM MUCH MORE SUSCEPTIBLE TO RESPIRATORY AND OTHER INFECTIONS. PT REPORTS STARTING TX FOR LUNG CA BUT STATES HE HAS NO INTEREST IN HAVING ANY FURTHER TREATMENT BECAUSE OF HOW ILL IT MAKES HIM FEEL WITH N/V, DIARRHEA, WEAKNESS AND GENERALIZED FEELING "AWFUL". HE STATES HE DOES NOT WANT TO DO THAT AGAIN AND "BE THAT SICK FOR WHAT LITTLE TIME IT MAY GIVE ME". DISCUSSED OPTIONS FOR HOME CARE. PT REQUESTS HOSPICE ON DISCHARGE BUT WOULD LIKE TO TREAT PNEUMONIA, DEHYDRATION, N/V WHILE IN HOSPITAL. HE UNDERSTANDS THAT S/S AND EOL CARE WOULD BE MANAGED AT HOME OR ANOTHER SETTING BUT THAT HE WOULD NOT RETURN TO THE HOSPITAL. PT LIVES ALONE. HIS GRAND MYRON AND GREAT GRAND MYRON WORK HERE AT THE HOSPITAL. ALYCIA BARRIENTOS, GRANDDAUGHTER HELPS HIM WITH MEDICAL ISSUES WHEN SHE IS AVAILABLE AND NOT WORKING. PT WAS DRIVING AND WAS ABLE TO TRANSFER AND COMPLETE ADL'S INDEPENDENTLY AT HOME PRIOR TO THIS ADMIT. WE DISCUSSED THE PROBABLE CHANGE IN HIS ABILITY TO BE ALONE AND INDEP IN THE FUTURE. WE DISCUSSED FUTURE S/S MANAGEMENT NEEDS AND SAFETY WITH DRIVING OR BEING ALONE WHEN TAKING COMFORT MEDICATIONS. ALL OF ABOVE REPORTED TO WRAPPER AND PRESERVER AFTER HOSPICE ORDER OBTAINED FROM AND ENTERED. I RECOMMEND THAT PT HAVE RADIOTELEPHONE OPERATOR, INFORMATION SYSTEMS SECURITY DEVELOPER AND FRONT OFFICE ADMINISTRATOR INVOLVED STACEY FOR ADVANCED CARE PLANNING NEEDS. VM LEFT FOR GAYLA BARRIENTOS, AT HER NUMBER LISTED ON WHITE BOARD, TO ANSWER ANY QUESTIONS SHE MAY HAVE. SHE IS WORKING TODAY AND HOPEFULLY I WILL BE ABLE TO CONNECT WITH HER TOMORROW. PT STATES HE DOES NOT NEED ANY ADDITIONAL EQUIPMENT AT HOME. HE HAS BEEN ON [facility] PREVIOUSL[facility] AND REQUESTS [facility] ON DISCHARGE. UPDATED ON MY VISIT AND HOSPICE ORDERS OBTAINED/ENTERED. REPORT TO CM ALSO.
--- NOTE | 2019-05-11 19:45 | NUR ---
SHIFT SUMMARY: NO ACUTE CHANGES TO REPORT THIS SHIFT. PT A&O; APATHETIC; COOPERATIVE WITH CARE. PT STATES HE WILL NOT DO FURTHER CHEMO R/T LUNG CA c METS TO SPINE. HX L AKA; WHEELCHAIR BOUND AT BASELINE. PLAN TO TRANSITION TO HOSPICE 05/12. REPORT GIVEN TO ONCOMING RN.
--- NOTE | 2019-05-12 05:50 | NUR ---
SHIFT SUMMARY PT A/O. NO C/O PAIN. OCCASIONAL CONGESTED SOUNDING COUGH NONPRODUCTIVE. 3L O2 NC. HE HAS BEEN SLEEPY T/O NIGHT, SLEEPING T/O NIGHT. USING URINAL. CALL LIGHT IN REACH.
--- NOTE | 2019-05-12 13:07 | NUR ---
PAL CARE VISIT: PT WITH PARTIALLY EATEN LUNCH TRAY IN FRONT OF HIM. HE STATES HE FEELS ICKY. CHEST FEELS TIGHT AND HE DOES NOT FEEL LIKE HE IS ABLE TO COUGH UP SPUTUM. HE SAYS THIS IS WORSE THAN YESTERDAY. REVIEWED eMAR AND NO RESPIRATORY TX NOTED. WOULD RECOMMEND UPDRAFT TO ASSIST WITH BRONCHODIALATION AND MOVEMENT OF SPUTUM. PT ALSO REPORTS INCREASING PAIN. PT HAD ULTRAM THIS AM AND FOUND IT HELPFUL. REPORTED PAIN TO RN WHO WILL GIVE ULTRAM PER PT REQUEST. CALLED ALYCIA DONOHUE, WHILE IN PT'S ROOM. SHE WILL BE IN LATER TODAY. HER QUESTIONS WERE ANSWERED R/T MY CONVERSATION WITH RENE YESTERDAY. SPOKE WITH CM TO ARRANGE TO MEET WITH RENE'S JAYDE TO DISCUSS D/C PLANNING FOR HOME GOING WITH HOSPICE AT 3PM TODAY. RECOMMENDED TO BOTH ALYCIA AND RENE THAT SECURITY STRATEGIST FROM HOSPICE BE INVOLVED IN CARE STACEY TO HELP GET MORE CAREGIVING IN THE HOME ALSO. THIS WAS NOTED WHEN I PLACED THE HOSPICE ORDER ALSO.
--- NOTE | 2019-05-12 19:28 | NUR ---
SHIFT SUMMARY: NO ACUTE CHANGES TO REPORT THIS SHIFT. PT A&O; CALM AND COOPERATIVE WITH CARE. MEDICATED FOR ABD PAIN PER EMAR. L AKA; 1-ASSIST TO BR. LUNG CA c METS TO SPINE; PATIENT REFUSING FURTHER CHEMO; EXPECTED D/C HOME WITH HOSPICE THIS SATURDAY. REPORT GIVEN TO ONCOMING RN.
--- NOTE | 2019-05-13 06:40 | NUR ---
SHIFT SUMMARY PT IS AN 83 Y/O MALE, ADMITTED FOR ADVERSE DRUG EFFECTS POSSIBLY R/T CHEMO. HE IS A&O X 3, AND A 1PA IN THE ROOM. PT DENIED THE NEED FOR PAIN MEDS DURING THE NIGHT, AND DENIED ANY SOB OR NAUSEA, BUT DID REPORT A COARSE COUGH DURING THE NIGHT. VITAL SIGNS STABLE. PT STATED HE SLEPT OFF AN ON DURING THE NIGHT. NO OTHER ACUTE CHANGES IN PT CONDITION NOTED. WILL CONTINUE TO MONITOR AND TREAT PER EMAR UNTIL HAND OFF TO DAY SHIFT.
--- NOTE | 2019-05-13 18:12 | NUR ---
FIELD START PRESENT ON ASSESSMENT TO L HAND. PATIENT REFUSED TO HAVE THIS IV ROTATED. REDRESSED. PATENT. FLETCHER PLACED DUE TO RETENTION. STATES HE IS MUCH MORE COMFORTABLE. FAMILY AT BEDSIDE THIS AFTERNOON. EAGER TO D/C HOME.
--- NOTE | 2019-05-14 06:49 | NUR ---
SHIFT SUMMARY PT IS AN 83 Y/O MALE, ADMITTED FOR AN ADVERSE DRUG REACTION POSSIBLY R/T CHEMO FOR LUNG CX WITH METS. HE COMPLAINED OF A COARSE COUGH DURING THE NIGHT. AFTER CONSULTING HOSPITALIST LAZARA YUN, PRN TESSALON PERLES WERE ORDERED, THOUGH PT REPORTS MINIMAL RELIEF. HE WAS MEDICATED ONCE FOR PAIN WITH PRN TRAMADOL AT BEDTIME, AND REPORTS ABD PAIN R/T COUGHING THIS AM. NO COMPLAINTS OF ACUTE SOB, THOUGH PT REMANS ON 2L OF O2 VIA NC. FLETCHER IN PLACE, PATENT AND DRAINING. VITAL SIGNS STABLE. PT RECEIVING NS AT 100 ML/HR. NO OTHER ACUTE CHANGES IN PT CONDITION NOTED. REPORT GIVEN TO ONCOMING RN.
--- NOTE | 2019-05-14 19:54 | NUR ---
1930: ASSUMED CARE PF PATIENT. PT C/O CHEST WALL PAIN 2ND TO COUGH. RECENT PAIN MED TYLNOL III AT 1830. DAUGHTER IS AT THE BEDSIDE AND ASKING FOR TUSSIN WITH CODEINE. #20 LH C/DI, CALL DONAHUE WITHIN REACH.
--- NOTE | 2019-05-14 20:27 | NUR ---
GRANDDAUGHTER ALYCIA [phone] REQ TO CALL HER TOMORROW WITH UPDATES.
[2019-05-15] MEDS ORDERED: CODEINE-GUAIFE120 ML PO (11:40)
[2019-05-15] MEDS ORDERED: CLOBETTC TOP (11:40)
[2019-05-15] MEDS ORDERED: ALBU3IS INH (11:42)
[2019-05-15] MEDS ORDERED: Vsl#3 Capsule1 EACH PO (11:46)
[2019-05-15] MEDS ORDERED: MIRT15 PO (11:46)
[2019-05-15] MEDS ORDERED: PANT20 PO (11:46)
[2019-05-15] MEDS ORDERED: TRAM50 PO (11:48)
[2019-05-15] MEDS ORDERED: AMOCLA875 PO (11:49)
--- NOTE | 2019-05-15 12:53 | NUR ---
DISCHARGE SUMMARY PATIENT WAS SENT WITH PAPER SCRIPT FOR TRAMADOL, WELL HIS CODEINE COUGH SYRUP. PATIENT AND FAMILY WERE GIVEN DISCHARGE INSTRUCTIONS, PATIENT ALLOWED HIS DAUGHTER TO SIGN FOR HIM TO DISCHARGE. HE WAS TAKEN BY [facility] WITH AN O2 TANK WHICH THEY AGREED TO RETURN THEY HAVE ANOTHER PICKUP AROUND 1330. PATIENT WAS PLEASANT AND AGREED TO DISCHARGE TO FAMILY HOME FOR HOSPICE.
== END 2019-05-15 12:31 | disposition home or self-care (01) | DRG 394 ==
LOC: ER 15:08 → MEDS 15:09
PROVIDERS: Emergency Medicine; Nurse Practitioner Acute Care; Student in an Organized Health Care Education/Training Program; ADMIT Internal Medicine
DX: K52.1 Toxic gastroenteritis and colitis (principal); N17.9 Acute kidney failure, unspecified; N39.0 Urinary tract infection, site not specified; C34.90 Malignant neoplasm of unspecified part of unspecified bronchus or lung; E44.0 Moderate protein-calorie malnutrition; E78.00 Pure hypercholesterolemia, unspecified; Z95.1 Presence of aortocoronary bypass graft; J44.9 Chronic obstructive pulmonary disease, unspecified; Z95.0 Presence of cardiac pacemaker; Z89.612 Acquired absence of left leg above knee; N18.3 Chronic kidney disease, stage 3 (moderate); I12.9 Hypertensive chronic kidney disease with stage 1 through stage 4 chronic kidney disease, or unspecified chronic kidney disease; T45.1X5A Adverse effect of antineoplastic and immunosuppressive drugs, initial encounter; Y92.9 Unspecified place or not applicable; H10.30 Unspecified acute conjunctivitis, unspecified eye; E86.0 Dehydration; B37.9 Candidiasis, unspecified; E11.22 Type 2 diabetes mellitus with diabetic chronic kidney disease; I25.10 Atherosclerotic heart disease of native coronary artery without angina pectoris; F32.9 Major depressive disorder, single episode, unspecified; Z51.5 Encounter for palliative care; E66.3 Overweight; E11.65 Type 2 diabetes mellitus with hyperglycemia; Z68.24 Body mass index [BMI] 24.0-24.9, adult; Z85.46 Personal history of malignant neoplasm of prostate; D63.0 Anemia in neoplastic disease; Z79.02 Long term (current) use of antithrombotics/antiplatelets; Z79.84 Long term (current) use of oral hypoglycemic drugs; Z87.891 Personal history of nicotine dependence
CPT/HCPCS: 0097U; 36415; 71045; 71046; 80048; 80053; 81001; 82947; 84145; 85025; 87086; 87147; 94640; 94660; 94760; 94762; 96361; 96372; 96374; 96375; 96376; 97110; 97162; 97166; 97530; 99285-25; A9270; C9113; G0378; J0696; J1644; J2270; J2405; J7030; J7120